=== PATIENT | female | born 1975 | race Caucasian/White ===

== ENCOUNTER → 2016-09-12 | Outpatient (CLI) | payer OTHER ==
[~2016-09-12] MED LIST: IBUP-103 PO; MULT-506 PO
== END | disposition home or self-care (01) ==
LOC: C.PAPS 12:27
PROVIDERS: ATTEND Family Medicine
DX: Z12.72 Encounter for screening for malignant neoplasm of vagina (principal)

== ENCOUNTER → 2016-09-18 | Outpatient (CLI) | payer OTHER ==
--- NOTE | 2016-09-18 14:43 | MAMMOGRAPHY REPORT ---
UNILATERAL RIGHT DIGITAL DIAGNOSTIC MAMMOGRAM TOMOSYNTHESIS AND TARGETED RIGHT ULTRASOUND: 09/18/2016 CLINICAL HISTORY: The patient reports right upper inner quadrant breast pain for approximately 3 sherry hs, which is noticeable when she takes deep breaths or palpates the area. She denies any skin erythe ma, palpable lumps, nipple discharge, or other complaints. She was recently started on anti-inflamma tories. TECHNIQUE: Breast tomosynthesis in addition to standard 2D mammography was performed. Spot compress ion right CC and MLO 2-D and tomosynthesis implant displaced views were obtained. Only spot compress ion views were obtained as the patient had complete screening mammograms 08/06/2016. COMPARISON: Comparison is made to exams dated: 08/06/2016 mammogram, 08/30/2014 mammogram, 01/03/2013 ma mmogram, 10/31/2011 ultrasound, and 10/31/2011 mammogram - [facility]. BREAST COMPOSITION: There are scattered areas of fibroglandular density in the right breast. FINDINGS: A triangle marker chicas the site of pain within the right breast posterior to the nipple o n the MLO view. Spot compression views of the right upper inner quadrant demonstrate no suspicious m asses, calcifications, or areas of architectural distortion. There has been no significant interval change compared to prior exams. Targeted ultrasound was performed of the area of pain pointed out by the patient, involving the right upper inner quadrant. The patient noted pain during ultrasound of the right 1:00 breast, approximat nolvia 6 cm from the nipple. Sonographically normal tissue was seen throughout the right upper inner qu adrant, without evidence of a mass or other suspicious sonographic abnormality. IMPRESSION: ACR BI-RADS CATEGORY 2: BENIGN, TARGETED ULTRASOUND ACR BI-RADS CATEGORY 2: BENIGN No suspicious mammographic or sonographic abnormality to explain right upper inner quadrant breast pa in. There is no mammographic or targeted sonographic evidence of malignancy. Recommend clinical fol low-up for right breast pain, and recommend routine bilateral screening mammograms which are due August 2017. The patient has been verbally notified of the results. Approximately 10% of breast cancers are not detected with mammography. A negative mammographic report should not delay biopsy if a clinically suggestive mass is present. Celeste Colby M.D. ah/:09/18/2016 09:24:07 [employer]: Michelle MORAES(R)(M), [facility] letter sent: Normal /2 BI-RADS Code: ACR BI-RADS Category 2: Benign Ultrasound BI-RADS: ACR BI-RADS Category 2: Benign
== END | disposition home or self-care (01) ==
LOC: C.MAMM 08:48
PROVIDERS: ATTEND Family Medicine
DX: N64.4 Mastodynia (principal)